=== PATIENT | female | born 1950 | race Caucasian/White ===

== ENCOUNTER 2020-04-02 09:47 | Day surgery (SDC) | payer MEDICARE, SELFPAY ==
[2020-04-01 13:06] VITALS: BMI 45.0
--- NOTE | 2020-04-01 13:29 | HO.ANESPROP2 ---
Documented by User: Shantelle Golden 04/01/20 13:30 HPI - Anesthesia Eval Consult details Narrative: 69yo f for colonoscopy [facility] Past Medical History Medical History (Updated 04/02/20 @ 11:16 by Avis Mendoza) HTN (hypertension) Hx of migraines Increased BMI Surgical History Surgical History Hx of cholecystectomy Social History Social History Smoking Status: Never smoker Use of substances other than those prescribed or required for medical reasons: No Advance Directives: No Advance Directives Information Provided: Yes Recently lost weight without trying: No Meds Allergies Allergy/AdvReac Type Severity Reaction Status Date / Time No Known Allergies Allergy Unverified 03/14/20 16:14 [No Known Allergies*] Home Medications Medication Instructions Recorded Confirmed Type lisinopril 1 tab PO DAILY 04/01/20 04/01/20 History metoprolol tartrate 1 tab PO BID 04/01/20 04/02/20 History Exam Exam Date and Time: April 01, 2020 1329 Height,Weight and Vital Signs: Height 5 ft 8 in Weight 134.263 kg Assessment and Plan Assessment Anesthesia Assessment: Chart Reviewed Documented by User: Avis Mendoza 04/02/20 11:24 [facility] Past Medical History Medical History (Updated 04/02/20 @ 11:16 by Avis Mendoza) HTN (hypertension) Hx of migraines Increased BMI Cognitive capacity: Alert and oriented Family History Family history of problems with anesthesia: No Surgical History Surgical History Hx of cholecystectomy History of Problems with Anesthesia: No Social History Social History Smoking Status: Never smoker Use of substances other than those prescribed or required for medical reasons: No Advance Directives: No Advance Directives Information Provided: Yes Recently lost weight without trying: No Meds Allergies Allergy/AdvReac Type Severity Reaction Status Date / Time No Known Allergies Allergy Unverified 03/14/20 16:14 [No Known Allergies*] Home Medications Medication Instructions Recorded Confirmed Type lisinopril 1 tab PO DAILY 04/01/20 04/01/20 History metoprolol tartrate 1 tab PO BID 04/01/20 04/02/20 History Exam Height,Weight and Vital Signs: Vital Signs Temp Pulse Resp BP Pulse Ox 04/02/20 10:36 98.4 F 70 18 180/92 H 97 Airway Mallampati Class: II TM Dist: >3cm Neck ROM: Full Partial: Lower Assessment and Plan Assessment Anesthesia Assessment: Anesthesia Plan Discussed, Consent Obtained and Chart Reviewed Final Anesthetic Review NPO: Yes Intake Type: Clears (Sip of water with meds) Intake Timing: Greater than 8 hours and Solids Intake Timing: Greater than 8 hours ASA Class: III Final Preanesthetic Review: No Changes in Pt Med Stat, Meds & Allergies Reviewed, Consent Obtained/Reviewed, Med/Surg/Anes Hx Reviewed and Anes Risks/Benef Reviewed Patient Risk: Intermediate Procedure Risk: Low Anesthetic Plan Anesthetic Plan: MAC: Disposition: Standard PACU
[2020-04-02 10:36] VITALS: BP 180/92; PULSE 70; RESP 18; TEMP 36.9; O2SAT 97
[2020-04-02] MEDS: Lactated Ringers 1,000 ML 100 ML IVCONT (10:54)
--- NOTE | 2020-04-02 11:08 | MHC.SHP ---
Pre-Procedural Eval Section B Chief Complaint: SCREENING,RIGHT UPPER QUAD PAIN Details of Present Illness: see H&P no changes Relevant Family History (Specify if Yes): No Relevant Social History: None Present Medications: see Short Stay Collaborative assessment Medical History: Significant History (see H&P no changes) History of Previous Operations: No relevant previous surgery Allergies: Allergies Allergy/AdvReac Type Severity Reaction Status Date / Time No Known Allergies Allergy Unverified 03/14/20 16:14 [No Known Allergies*] Review of Systems Sugical H&P ROS: Negative: Constitution, Cardiovascular, Respiratory, Neurological, Psychiatric, Hem-Onc, Allergic/Immunologic, Gastrointestinal, Genitourinary, Musculoskeletal, Integumentary, Endocrine and Eyes/Ears/Nose/Throat Exam Surgical H&P Exam: Normal: HEENT, Normal: Heart, Normal: Lungs, Normal: Extremities, Normal: Abdomen, Normal: Skin and Normal: Neurological Plan Diagnosis/Plan: Unchanged Patient has been examined and remains a candidate for the planned procedure
--- NOTE | 2020-04-02 11:40 | PM.OP ---
Brief Operative Note Date of procedure: 04/02/20 Pre-op diagnosis: screening Post-op diagnosis: same (normal) Procedure: colonoscopy Anesthesia: MAC Estimated blood loss (mL): 0 Pathology: other (rectal biopsies) Condition: stable Disposition: PACU
[2020-04-02 11:44] VITALS: BP 120/77; PULSE 60; RESP 12; TEMP 36.2; O2SAT 93
--- NOTE | 2020-04-02 11:57 | OP_ITS ---
SURGEON: Shar Webster MD INDICATIONS: Colon cancer screening. PREOPERATIVE DIAGNOSIS: POSTOPERATIVE DIAGNOSIS: PROCEDURE PERFORMED: Colonoscopy to the terminal ileum with biopsy. ESTIMATED BLOOD LOSS: COMPLICATIONS: ANESTHESIA: ASSISTANTS: SPECIMENS: MEDICATIONS: Monitored anesthesia care. DESCRIPTION OF PROCEDURE: History and physical performed. The risks and benefits of the procedure were explained to the patient. Informed consent was obtained. The patient was placed in the left lateral decubitus position. A digital rectal exam was performed and was found to be normal. The Olympus pediatric video colonoscope was introduced into the rectum and advanced to the cecum without difficulty. The cecum was identified by transillumination, palpation, and identification of ileocecal valve. Examination was performed and the scope was removed. She tolerated the procedure well and was taken to recovery area in stable condition. FINDINGS: The terminal ileum was normal. The visualized colonic mucosa was normal. The quality of the prep was good. There was mild sigmoid diverticulosis. There was a 2.5 x 2.0 cm lipoma in the rectum. Two biopsies were obtained from the mucosa. Retroflexed examination showed small internal hemorrhoids. IMPRESSION: Normal colonoscopy. RECOMMENDATIONS: 1. Follow up as needed. 2. Repeat colonoscopy is recommended in 10 years because of repeat colonoscopy is recommended in 10 years for average risk individuals. MD CABRERA Mcdonough/NASIMA / [id number]
[2020-04-02 11:59] VITALS: BP 136/82; PULSE 63; RESP 16; O2SAT 94
[2020-04-02 12:08] VITALS: BP 138/72; PULSE 63; RESP 16; TEMP 36.3; O2SAT 95
--- NOTE | 2020-04-02 12:28 | HO.POSTANES ---
Post Anesthesia Evaluation Post Anesthesia Evaluation Vital Signs: Vital Signs Temp Pulse Resp BP Pulse Ox 04/02/20 12:08 97.4 F 63 16 138/72 95 04/02/20 11:59 63 16 136/82 94 04/02/20 11:44 97.2 F 60 12 120/77 93 04/02/20 10:36 98.4 F 70 18 180/92 H 97 Anesthesia: Monitored Mental Status: Awake Pain Control: Satisfactory Nausea/Vomiting: None Hydration: Adequate Anesthesia-Related Issues: No Anes. Related Issues
== END 2020-04-02 12:33 | disposition home or self-care (01) ==
PROVIDERS: PCP Internal Medicine Medical Oncology; Visit Provider Internal Medicine Gastroenterology
PROC: 0DJD8ZZ Inspection of Lower Intestinal Tract, Via Natural or Artificial Opening Endoscopic (ICD-10-PCS; CPT 45378; principal; 2020-04-02 11:10)
DX: Z12.11 Encounter for screening for malignant neoplasm of colon (principal); I10 Essential (primary) hypertension; G43.909 Migraine, unspecified, not intractable, without status migrainosus; Z90.49 Acquired absence of other specified parts of digestive tract; Z79.899 Other long term (current) drug therapy
CPT/HCPCS: 45380; 88305

== ENCOUNTER 2025-04-24 10:37 | Day surgery (SDC) | payer MEDICARE, SELFPAY ==
--- NOTE | 2025-04-20 13:02 | HO.ANESPROP2 ---
HPI - Anesthesia Eval Consult details Narrative: 74yo F for Colonoscopy PMFSH Active Problems Active Problems: All Active Problems Increased BMI (Acute) Past Medical History Medical History (Updated 04/02/20 @ 11:16 by Avis Mendoza MD) Increased BMI Hx of migraines HTN (hypertension) Family History Family history of problems with anesthesia: No Surgical History Surgical History Hx of cholecystectomy History of Problems with Anesthesia: No Social History Social History Patient Tobacco Use Status: Never used Tobacco Use of substances other than those prescribed or required for medical reasons: No Advance Directives: No Advance Directives Information Provided: Yes Meds Allergies Allergy/AdvReac Type Severity Reaction Status Date / Time No Known Allergies (No Known Allergy Unverified 03/14/20 16:14 Allergies*) Home Medications ?Medication ?Instructions ?Recorded ?Confirmed ?Last Taken ?Type lisinopril 40 mg tablet 1 tab PO DAILY 04/01/20 04/24/25 04/23/25 08:00 History metoprolol tartrate 100 mg tablet 1 tab PO BID 04/01/20 04/24/25 04/23/25 08:00 History Assessment and Plan Assessment Anesthesia Assessment: Chart Reviewed Final Anesthetic Review Family History of Problems with Anesthesia: No History of Problems with Anesthesia: No
[2025-04-24 11:10] VITALS: BMI 35.7
[2025-04-24 11:34] VITALS: BP 141/76; PULSE 65; RESP 16; TEMP 36.9; O2SAT 100
[2025-04-24] MEDS: Lactated Ringers 1,000 ML 100 ML IVCONT (11:40)
--- NOTE | 2025-04-24 12:04 | MHC.SHP ---
Pre-Procedural Eval Section A - 24 Hr Update-Section A only Date of Service: 04/24/25 The patient is an INPATIENT: No Changes since office visit: No Cold of Flu in the past 2 weeks, No New Medical Problems, No Changes in Medication and No Patient answered all questions The patient has been examined within 24 hours of the surgical procedure. The History & Physical has been completed within 30 days and I have reviewed it.: Yes Section B - Complete if H&P > 30 days Chief Complaint: Hemorrhage of anus and rectum Allergies: Allergies Allergy/AdvReac Type Severity Reaction Status Date / Time No Known Allergies (No Known Allergy Unverified 03/14/20 16:14 Allergies*) Plan I have reviewed the history and physical and performed a pertinent physical examination on my patient. No changes have occurred unless specified. Time Spent With Patient Time: Total time managing care of this patient today ____ minutes.
[2025-04-24 13:42] VITALS: BP 106/50; PULSE 60; RESP 14; TEMP 36.6; O2SAT 99
[2025-04-24 13:57] VITALS: BP 126/67; PULSE 57; RESP 16; TEMP 36.2
--- NOTE | 2025-04-25 00:23 | OP_ITS ---
DATE OF SERVICE: 04/24/2025 SURGEON: Shar Webster MD PREOPERATIVE DIAGNOSIS: POSTOPERATIVE DIAGNOSIS: PROCEDURE PERFORMED: Colonoscopy to the terminal ileum with biopsy. ESTIMATED BLOOD LOSS: COMPLICATIONS: ANESTHESIA: Medications, monitored anesthesia care. ASSISTANTS: SPECIMENS: DESCRIPTION OF PROCEDURE: A history and physical was performed. The risks and benefits of the procedure were explained to the patient. Informed consent was obtained. The patient was placed in the left lateral decubitus position. A digital rectal exam was performed and was found to be normal. The Olympus pediatric video colonoscope was introduced into the rectum and advanced to the cecum. The cecum was identified by transillumination, palpation, and identification of ileocecal valve. Examination was performed. The scope was removed. She tolerated the procedure well and was returned to the recovery area in stable condition. FINDINGS: The terminal ileum was examined and appeared normal. The visualized colonic mucosa was normal. The quality of the prep was good. In the rectum was a 3 cm lipoma, which was biopsied. No masses or lesions were seen. Retroflexed examination showed small internal hemorrhoids. IMPRESSION: Normal colonoscopy. RECOMMENDATION: Follow up the biopsy results. MD CABRERA Mcdonough/NASIMA / [id number]
== END 2025-04-24 14:18 | disposition home or self-care (01) ==
PROVIDERS: PCP Internal Medicine Medical Oncology; Visit Provider Internal Medicine Gastroenterology
PROC: 0DJD8ZZ Inspection of Lower Intestinal Tract, Via Natural or Artificial Opening Endoscopic (ICD-10-PCS; CPT 45378; principal; 2025-04-24 12:40)
DX: K62.5 Hemorrhage of anus and rectum (principal); Z80.0 Family history of malignant neoplasm of digestive organs; D12.7 Benign neoplasm of rectosigmoid junction; K64.8 Other hemorrhoids; I10 Essential (primary) hypertension; R51.9 Headache, unspecified; Z80.7 Family history of other malignant neoplasms of lymphoid, hematopoietic and related tissues; Z90.49 Acquired absence of other specified parts of digestive tract; Z79.899 Other long term (current) drug therapy
CPT/HCPCS: 45380; 88305; J2003; J2704